=== PATIENT | male | born 2000 | race Caucasian/White ===

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

== ENCOUNTER 2021-10-19 20:36 | Emergency (ER) | payer OTHER ==
[~2021-10-19 20:36] MED LIST: IBUPROFEN800 MG PO; ONDANSETRON ODT4 MG SL
[2021-10-19 22:19] LABS: BASOPHIL 0.3 % (0-2); EOSINOPHIL 0.5 % (0-5); HCT 43.3 % (42.0-52.0); HGB 15.2 g/dl (13.2-18.0); LYMPHOCYTE 4.9 % (15-48); MCHC 35.1 g/dL (32.0-36.0); MCV 88.2 fL (78.0-100.0); MONOCYTE 12.4 % (0-12); MPV 10.7 fL (6.0-9.5); NEUTROPHIL 81.4 % (41-80); NRBC 0; PLT 209 K/uL (150-400); RBC 4.91 M/uL (4.70-6.00); RDW 12.7 % (11.5-14.0); WBC 6.2 K/uL (4.0-10.5)
[2021-10-19 22:44] LABS: ALBUMIN 4.7 g/dL (3.4-5.0); BILIRUBIN - TOTAL 0.8 mg/dL (0.2-1.0); BUN/CREAT RATIO (CALC) 12.6 RATIO; CREATININE 0.87 mg/dL (0.67-1.17); GLOBULIN (CALCULATION) 3.5 g/dL; TOTAL PROTEIN 8.2 g/dL (6.4-8.2)
[2021-10-19] MEDS ORDERED: ONDANSETRON ODT4 MG PO (22:55)
== END 2021-10-19 23:04 | disposition home or self-care (01) ==
LOC: FER 20:36
PROVIDERS: Physician Assistant
DX: U07.1 COVID-19 (principal); Z28.310 Unvaccinated for COVID-19
CPT/HCPCS: 36415; 80053; 85025; J2405; J7030